=== PATIENT | female | born 1950 ===

== ENCOUNTER 2020-11-30 13:06 | Outpatient (REF) | payer MEDICARE, SELFPAY ==
[2020-11-30 15:43] LABS: Iron 83 ug/dL (50-170); Total Iron Binding Capacity 269 ug/dL (250-450); Transferrin Sat 31 % (15-50)
[2020-11-30 16:20] LABS: ALT 58 U/L (14-59); AST 39 U/L (15-37); Albumin 4.1 g/dL (3.4-5.0); Alkaline Phosphatase 95 U/L (46-116); Bilirubin, Direct 0.1 mg/dL (0.0-0.2); Bilirubin, Total 0.5 mg/dL (0.2-1.0); Ferritin 45 ng/mL (8-252); Total Protein 7.6 g/dL (6.4-8.2)
[2020-12-01 10:09] LABS: Hepatitis B Surface Ag Negative (Negative)
[2020-12-01 10:36] LABS: Hepatitis C Ab w Rflx HCV PCR Negative (Negative)
== END 2020-11-30 13:07 | disposition home or self-care (01) ==
LOC: NCHCN 13:06
PROVIDERS: PCP Nurse Practitioner Family; Visit Provider Internal Medicine
DX: I10 Essential (primary) hypertension (principal); R94.5 Abnormal results of liver function studies; I44.7 Left bundle-branch block, unspecified; Z11.59 Encounter for screening for other viral diseases
CPT/HCPCS: 80076; 86803; 87340; 82728; 83540; 83550